=== PATIENT | male | born 1990 | race Hispanic/Latino ===

== ENCOUNTER 2022-03-22 11:15 | Inpatient (IN) | payer SELFPAY ==
[2022-03-22] MEDS ORDERED: Lorazepam 2 MG/ML VIAL ONE (12:09)
[2022-03-22 12:22] LABS: #Lymphocytes 1.5 thou/uL (1.20-3.40); #Monocytes 0.3 thou/uL (0.11-0.59); #Neutrophils 5.2 thou/uL (1.40-6.50); %Basophils 0.5 % (0.0-1.0); %Lymphocytes 20.8 % (21.0-51.0); %Monocytes 4.3 % (0.0-10.0); %Neutrophils 74.4 % (42.0-75.0); Hemoglobin 14.7 g/dL (14.0-18.0); Mean Corpuscular HGB CONC 33.6 g/dL (32.0-36.0); Mean Corpuscular Hemoglobin 29.4 pg (27.0-31.0); Mean Corpuscular Volume 87.5 fL (78.0-98.0); Mean Platelet Volume 7.7 fL (7.4-10.4); Platelet Count 237 thou/uL (130-400); RBC Distribution Width 13.1 % (11.5-14.5)
[2022-03-22 12:37] LABS: Acetaminophen Less than 10.0 mcg/mL (10.0-30.0); Alcohol Less than 10 mg/dL (Less than 10); Salicylate Less than 8.0 mg/dL (15.0-30.0)
[2022-03-22 12:38] LABS: ALT (SGPT) 18 U/L (8-55); AST (SGOT) 15 U/L (5-34); Albumin 4.2 g/dL (3.5-5.0); Alkaline Phosphatase 139 U/L (40-110); Anion Gap 16 mmol/L (10-20); BUN (Urea Nitrogen) 11 mg/dL (8.9-20.6); Bilirubin, Total 0.6 mg/dL (0.2-1.2); Calc. Creatinine Clearance 0 mL/min (70-130); Calcium 9.9 mg/dL (7.8-10.44); Carbon Dioxide 26 mmol/L (22-29); Chloride 103 mmol/L (98-107); Globulin 3.8 g/dL (2.4-3.5); Glucose 109 mg/dL (70-105); Potassium 3.8 mmol/L (3.5-5.1); Sodium 141 mmol/L (136-145)
[2022-03-22] MEDS ORDERED: Ondansetron ODT 4 MG TAB PO PRN (15:14)
[2022-03-22] MEDS ORDERED: Acetaminophen 325 MG TAB PO PRN (15:14)
[2022-03-22] MEDS ORDERED: Ondansetron PF 4 MG/2 ML Vial IVP PRN (15:14)
[2022-03-22] MEDS ORDERED: Sodium Chloride 0.9% 1,000 ML IV SCH (15:15)
[2022-03-22] MEDS ORDERED: Lorazepam 2 MG/ML VIAL IM PRN (15:18)
[2022-03-22] MEDS ORDERED: Lorazepam 1 MG TAB PO PRN (15:18)
[2022-03-22] MEDS ORDERED: Lorazepam 2 MG/ML VIAL SLOW IVP PRN (15:26)
[2022-03-22] MEDS ORDERED: Lorazepam 1 MG TAB PO SCH (15:30)
[2022-03-22] MEDS ORDERED: Electrolyte Replacement Protocol 1 EACH FS PRN (15:30)
[2022-03-22 16:04] LABS: #Lymphocytes 1.7 thou/uL (1.20-3.40); #Monocytes 0.3 thou/uL (0.11-0.59); %Basophils 0.4 % (0.0-1.0); %Eosinophils 0.1 % (0.0-10.0); %Monocytes 4.4 % (0.0-10.0); Hemoglobin 15.8 g/dL (14.0-18.0); Mean Corpuscular HGB CONC 33.5 g/dL (32.0-36.0); Mean Corpuscular Hemoglobin 29.5 pg (27.0-31.0); Mean Corpuscular Volume 87.9 fL (78.0-98.0); Mean Platelet Volume 8.3 fL (7.4-10.4); Platelet Count 248 thou/uL (130-400); RBC Distribution Width 13.2 % (11.5-14.5); Red Blood Cell (RBC) Count 5.37 mill/uL (4.70-6.10)
[2022-03-22 16:19] LABS: ALT (SGPT) 18 U/L (8-55); AST (SGOT) 17 U/L (5-34); Albumin 4.5 g/dL (3.5-5.0); Alkaline Phosphatase 158 U/L (40-110); Anion Gap 18 mmol/L (10-20); BUN (Urea Nitrogen) 11 mg/dL (8.9-20.6); Bilirubin, Total 0.7 mg/dL (0.2-1.2); Calc. Creatinine Clearance 0 mL/min (70-130); Calcium 10.3 mg/dL (7.8-10.44); Carbon Dioxide 24 mmol/L (22-29); Chloride 102 mmol/L (98-107); Globulin 4.2 g/dL (2.4-3.5); Glucose 106 mg/dL (70-105); Magnesium 1.8 mg/dL (1.6-2.6); Phosphorus 3.8 mg/dL (2.3-4.7); Potassium 3.7 mmol/L (3.5-5.1); Protein, Total 8.7 g/dL (6.0-8.3); Sodium 140 mmol/L (136-145)
[2022-03-22 16:25] VITALS: BMI 27.5
[2022-03-22] MEDS ORDERED: Electrolyte Replacement Protocol FS PRN (18:00)
[2022-03-22] MEDS ORDERED: Magnesium 2 GM/50 ML(in water) 2 GM in Premix Bag 1 BAG IVPB SCH (18:00)
[2022-03-22] MEDS: Lorazepam 1 MG TAB PO SCH (20:14)
[2022-03-22 21:51] LABS: SARS-CoV-2 PCR by NAA Not Detected (NotDetected)
[2022-03-23] MEDS: Lorazepam 1 MG TAB PO SCH ×2 (01:17→08:46)
[2022-03-23 04:49] LABS: Magnesium 2.3 mg/dL (1.6-2.6)
[2022-03-23] MEDS: Enoxaparin Sodium 40 MG/0.4 ML SYRINGE SC SCH (08:47)
[2022-03-23] MEDS ORDERED: Acetaminophen/Codeine 30-300mg Tablet PO PRN (09:24)
[2022-03-23] MEDS ORDERED: ALPRAZolam 0.25 MG TAB PO SCH (09:30)
[2022-03-23] MEDS ORDERED: Gabapentin 300 MG CAP PO SCH (09:30)
[2022-03-23] MEDS ORDERED: Lorazepam 1 MG TAB PO PRN (15:18)
[2022-03-23] MEDS: Gabapentin 300 MG CAP PO SCH (20:31)
[2022-03-23] MEDS: ALPRAZolam 0.25 MG TAB PO SCH (20:31)
[2022-03-24] MEDS ORDERED: Oxybutynin ER 5 MG TAB PO SCH (09:00)
[2022-03-24] MEDS: Saccharomyces boulardii 250 MG CAP PO SCH (09:22)
[2022-03-24] MEDS: Enoxaparin Sodium 40 MG/0.4 ML SYRINGE SC SCH (09:22)
[2022-03-24] MEDS: Gabapentin 300 MG CAP PO SCH ×2 (09:22→20:27)
[2022-03-24] MEDS: ALPRAZolam 0.25 MG TAB PO SCH ×2 (09:22→20:27)
[2022-03-24] MEDS ORDERED: Lorazepam 1 MG TAB PO PRN (15:18)
[2022-03-24] MEDS ORDERED: Lorazepam 0.5 MG TAB PO SCH ×2 (15:30→20:00)
[2022-03-24] MEDS ORDERED: cloNIDine 0.1 MG TAB PO PRN (18:38)
[2022-03-25 04:26] VITALS: TEMP 98.1
[2022-03-25] MEDS: Gabapentin 300 MG CAP PO SCH (08:11)
[2022-03-25] MEDS: Saccharomyces boulardii 250 MG CAP PO SCH (08:11)
[2022-03-25] MEDS: ALPRAZolam 0.25 MG TAB PO SCH (08:11)
[2022-03-25 08:32] VITALS: BP 151/97
[2022-03-25] MEDS ORDERED: Acetaminophen/Codeine 30-300mg Tablet PO PRN (09:04)
[2022-03-25] MEDS ORDERED: Lorazepam 0.5 MG TAB PO PRN (15:18)
[2022-03-25] MEDS ORDERED: Senokot S 8.6-50 MG TAB PO SCH (21:00)
[2022-03-25] MEDS ORDERED: Enoxaparin Sodium 40 MG/0.4 ML SYRINGE SC SCH (21:00)
[2022-03-25] MEDS ORDERED: Melatonin 3 MG TAB PO SCH (21:00)
== END 2022-03-25 15:43 | disposition home or self-care (01) | DRG 897 ==
LOC: ERS 11:15 → 2NO 13:58 → OBSVTOIN 03-23 13:24 → T4-A 03-24 18:19
PROVIDERS: ADMIT Internal Medicine; ATTEND Internal Medicine
DX: F19.239 Other psychoactive substance dependence with withdrawal, unspecified (principal); M48.54XA Collapsed vertebra, not elsewhere classified, thoracic region, initial encounter for fracture; R00.0 Tachycardia, unspecified; T42.4X5A Adverse effect of benzodiazepines, initial encounter; E83.42 Hypomagnesemia; R32 Unspecified urinary incontinence; I10 Essential (primary) hypertension; G93.89 Other specified disorders of brain; Z20.822 Contact with and (suspected) exposure to COVID-19
CPT/HCPCS: 36415; 80053; 80307; 83735; 84100; 85025; 93005; 94760; 96372; 96374; 96375; 96376; G0378; J1650; J2060; J3475; J7050; Q0162; U0003; U0005

== ENCOUNTER 2023-02-22 23:53 | Emergency (ER) | payer SELFPAY | END 2023-02-23 03:45 | disposition home or self-care (01) | LOC: ERS 23:53 | DX: M54.14 Radiculopathy, thoracic region (principal) | CPT/HCPCS: 99283 ==